=== PATIENT | female | born 1945 | race Native Hawaiian/Other Pacific Islander ===

== ENCOUNTER 2022-03-01 10:08 | Outpatient (CLI) | payer OTHER, MEDICARE | END 2022-03-01 20:35 | disposition home or self-care (01) | LOC: CT 10:08 | PROVIDERS: ATTEND Nurse Practitioner Family | DX: G45.9 Transient cerebral ischemic attack, unspecified (principal) ==

== ENCOUNTER 2022-12-19 16:32 | Outpatient (CLI) | payer OTHER, MEDICARE ==
[2022-12-19 17:01] LABS: PLATELET COUNT 250 K/uL (152-353)
[2022-12-19 17:08] LABS: POTASSIUM 3.1 mmol/L (3.6-5.2)
[2022-12-19 17:17] LABS: PARTIAL THROMBOPLASTIN TIME 27.5 SECONDS (24.5-33.6)
== END 2022-12-19 19:39 | disposition home or self-care (01) ==
LOC: CT 16:32
PROVIDERS: ATTEND Nurse Practitioner Family
DX: R41.82 Altered mental status, unspecified (principal); Z91.81 History of falling; E11.65 Type 2 diabetes mellitus with hyperglycemia; D64.89 Other specified anemias; Z86.73 Personal history of transient ischemic attack (TIA), and cerebral infarction without residual deficits
CPT/HCPCS: 36415; 80053; 83036; 85027; 85610; 85730

== ENCOUNTER 2023-02-06 10:59 | Outpatient (CLI) | payer OTHER, MEDICARE | END 2023-02-06 19:20 | disposition home or self-care (01) | LOC: RAD 10:59 | PROVIDERS: ATTEND Nurse Practitioner Family | DX: M79.604 Pain in right leg (principal); R06.02 Shortness of breath ==

== ENCOUNTER 2023-02-07 12:54 | Outpatient (CLI) | payer OTHER, MEDICARE | END 2023-02-07 19:21 | disposition home or self-care (01) | LOC: US 12:54 | PROVIDERS: ATTEND Nurse Practitioner Family | DX: M79.604 Pain in right leg (principal) ==